=== PATIENT | male | born 1995 | race Caucasian/White ===

== ENCOUNTER 2018-04-02 15:39 | Emergency (ER) | payer OTHER ==
--- NOTE | 2018-04-02 15:54 | EDPHY ---
H & P Stated Complaint: CP, SOB Time Seen by Provider: 04/02/18 15:53 HPI/ROS: CHIEF COMPLAINT: Chest pain and shortness of breath HISTORY OF PRESENT ILLNESS: This is a 22-year-old male with a past history of heartburn for which he took omeprazole for 2 months who presents with mid substernal chest pain that has been present on and off for the past 2 weeks. He has also had intermittent shortness of breath. The pain is not pleuritic. He 1st noticed it while lying in bed. He describes the chest pain is being sometimes sharp. It might last for 15 min but at the time of my interview he has been experiencing it for the past hour. Shortness of breath is not made worse by exertion. He has not had cough. He denies fever, sore throat, and myalgias. He has not had a flu shot yet this year. He does not use tobacco products. He smokes pot daily and has tried decreasing his marijuana usage, but there has been no change in his symptoms. No recent viral illnesses. No calf pain or calf swelling. No long distance travel. REVIEW OF SYSTEMS: A ten system review of systems was performed and is negative with the exception of the items mentioned in the HPI. Past medical history: Heart Past surgical history: Negative Family history: Two great grandparents who of heart attack, 1 at age 55 and 1 at age 37. 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 He uses alcohol socially. No tobacco use. Daily marijuana use. Family is in [place]. General Appearance: Alert. Vital signs reviewed. Blood pressure 142/68 at triage. Room air pulse ox 96%. Respiratory rate 16. Afebrile. Eyes: Pupils equal and round, no conjunctival injection, no discharge. Anicteric. ENT, Mouth: Mucous membranes are moist, no oropharyngeal erythema or edema. Neck: No lymphadenopathy, supple. Respiratory: Lungs are clear to auscultation; no wheezes, rales, or rhonchi. Cardiovascular: Regular rate and rhythm; no murmur, rub, or gallop. Gastrointestinal: Abdomen is soft and nontender, no masses or organomegaly, bowel sounds normal. Skin: Warm and dry, no rashes on exposed skin, normal color. Back: Nontender to palpation over the thoracolumbar spine. No CVAT. Extremities: No lower extremity edema, no calf tenderness or swelling. Neurological: Alert and oriented. Moving all four extremities easily and equally. Psychiatric: Normal affect. - Personal History Current Tetanus/Diphtheria Vaccine: Yes Current Tetanus Diphtheria and Acellular Pertussis (TDAP): Yes - Medical/Surgical History Hx Asthma: No Hx Chronic Respiratory Disease: No Hx Diabetes: No Hx Cardiac Disease: No Hx Renal Disease: No Hx Cirrhosis: No Hx Alcoholism: No Hx HIV/AIDS: No Hx Splenectomy or Spleen Trauma: No Other PMH: denies - Social History Smoking Status: Never smoked Constitutional: Initial Vital Signs Temperature (C) 36.7 C 04/02/18 15:42 Heart Rate 59 L 04/02/18 15:42 Respiratory Rate 16 04/02/18 15:42 Blood Pressure 142/68 H 04/02/18 15:42 O2 Sat (%) 96 04/02/18 15:42 O2 Delivery Mode Room Air Allergies/Adverse Reactions: No Known Allergies Allergy (Unverified 04/02/18 15:42) Home Medications: Medication Instructions Recorded Omeprazole 20 mg PO DAILY #30 tablet. 04/02/18 Medical Decision Making - Diagnostics EKG Interpretation: 12 lead EKG is interpreted in [place] by emergency department physician. It shows sinus bradycardia with rate 52. No acute ischemic changes. ED Course/Re-evaluation: 30-year-old with chest pain shortness of breath. Perc rule negative. No further evaluation for PE recommended. CBC, chemistries, troponin are all normal. I do not suspect ACS with this history. EKG is normal. Chest x-ray is normal per my review. Radiology report states that it is suggestive of reactive airway disease. He has no wheezing. He is not currently hypoxic or tachypneic. I suspect that he has substernal chest pressure is related to GERD, which has been a problem for him in the past. I am recommending that he resume omeprazole and I will write him a prescription. Danger signs have been reviewed with him. Differential Diagnosis: Chest pain including but not limited to GERD, myocardial ischemia, pulmonary embolus, chest wall pain, pleural inflammation and pulmonary infectious causes. - Data Points Laboratory Results: Laboratory Results 04/02/18 15:50 04/02/18 15:50 Point of Care Test Results: Chemistry 04/02/18 15:52 POC Troponin I 0.00 ng/mL ng/mL (0.00-0.08) Departure - Departure Disposition: Home, Routine, Self-Care Clinical Impression: Chest pain Qualifiers: Chest pain type: unspecified Qualified Code(s): R07.9 - Chest pain, unspecified GERD (gastroesophageal reflux disease) Qualifiers: Esophagitis presence: esophagitis presence not specified Qualified Code(s): K21.9 - Gastro-esophageal reflux disease without esophagitis Condition: Good Instructions: Omeprazole (By mouth), Gastroesophageal Reflux Disease (ED), Noncardiac Chest Pain (ED) Additional Instructions: I recommend that you resume taking omeprazole. Take about 30 min before meal, once daily. I am referring you to a cement truck driver, Dr. Carreno. If you continue to have heartburn and/or chest pain you should schedule an appointment with him. If you have severe or persistent chest pain, worsening shortness of breath, fever / cough, calf pain or swelling, any new or concerning symptoms--you should be re-evaluated. Referrals: [facility] [Other] - As per Instructions [facility] [Clinic] - As per Instructions Clemente Carreno MD [Medical Doctor] - As per Instructions Prescriptions: Omeprazole 20 mg PO DAILY #30 tablet.
[2018-04-02 16:23] LABS: PLATELET COUNT 338 10^3/uL (150-400)
[2018-04-02 17:42] VITALS: BP 112/70
--- NOTE | 2018-04-02 23:02 | CPEKG ---
Test Reason : OPEN Blood Pressure : / mmHG Vent. Rate : 052 BPM Atrial Rate : 051 BPM P-R Int : 138 ms QRS Dur : 085 ms QT Int : 408 ms P-R-T Axes : 074 032 011 degrees QTc Int : 380 ms Sinus rhythm Confirmed by Trina Lopez ([id number]) on 04/02/2018 11:02:40 PM Referred By: Confirmed By:Trina Lopez
== END 2018-04-02 17:47 | disposition home or self-care (01) ==
DX: R07.9 Chest pain, unspecified (principal); K21.9 Gastro-esophageal reflux disease without esophagitis
CPT/HCPCS: 84484-PO